=== PATIENT | female | born 1975 | race Caucasian/White ===

== ENCOUNTER 2019-01-28 06:16 | Observation (INO) ==
[2019-01-28] MEDS ORDERED: Albuterol 2.5 MG/3 ML NEBULIZER IH PRN (06:39)
[2019-01-28] MEDS ORDERED: CeFAZolin Syr 3,000MG/30 ML 3,000 MG/30 ML SYRINGE IVPB ONE (06:39)
[2019-01-28] MEDS ORDERED: Ringers Solution, Lactated 1,000 ML IVC SCH (06:45)
[2019-01-28] MEDS ORDERED: *HR* Propofol 200 MG/20 ML VIAL IVP ONE (07:05)
[2019-01-28] MEDS ORDERED: *HR* FentaNYL (PF) 100 MCG/2 ML VIAL ONE (07:05)
[2019-01-28] MEDS ORDERED: *HR* Midazolam HCl 2 MG/2 ML VIAL ONE (07:05)
[2019-01-28] MEDS ORDERED: *HR* Rocuronium Bromide 50 MG/5 ML VIAL ONE ×2 (07:08→08:20)
[2019-01-28] MEDS ORDERED: *HR* Succinylcholine 200 MG/10 ML VIAL IVP ONE (07:08)
[2019-01-28] MEDS ORDERED: Ondansetron 4 MG/2 ML VIAL ONE ×2 (07:08→10:40)
[2019-01-28] MEDS ORDERED: Lidocaine HCL 4 ML Topical Solution (Laryng-O-Jet Kit Sterile Pak) TP ONE (07:08)
[2019-01-28] MEDS ORDERED: Lidocaine -MPF 2% 2 ML VIAL ONE (07:08)
[2019-01-28] MEDS ORDERED: Pregabalin 75 MG CAPSULE PO ONE (07:11)
[2019-01-28] MEDS ORDERED: Celecoxib 200 MG CAPSULE PO ONE (07:11)
[2019-01-28] MEDS ORDERED: traMADol 50 MG TABLET PO ONE (07:11)
[2019-01-28] MEDS ORDERED: Famotidine 20 MG/2 ML VIAL IVP ONE (07:11)
[2019-01-28] MEDS ORDERED: cloNIDine HCl 0.1 MG TABLET PO ONE (07:11)
[2019-01-28] MEDS ORDERED: Acetaminophen IV 1,000 MG/100 ML INFUS..BTL IVPB ONE (07:12)
[2019-01-28] MEDS ORDERED: *HR* OxyCODONE/APAP 5/325 TABLET PO ONE (07:46)
[2019-01-28] MEDS ORDERED: *HR* Promethazine 25 MG/ML VIAL IVP PRN ×3 (08:23→16:50)
[2019-01-28] MEDS ORDERED: *HR* HYDROmorphone (PF) 1 MG/ML SYRINGE IVP PRN (08:23)
[2019-01-28] MEDS ORDERED: *HR* OxyCODONE Immed Rel 5 MG TABLET PO PRN (08:23)
[2019-01-28] MEDS ORDERED: *HR* Labetalol 20 MG/4 ML SYRINGE IVP PRN (08:23)
[2019-01-28] MEDS ORDERED: *HR* HYDROmorphone 2 MG TABLET PO PRN (08:23)
[2019-01-28] MEDS ORDERED: Neostigmine Methylsulfate 3 MG/3 ML SYRINGE ONE (10:24)
[2019-01-28] MEDS ORDERED: *HR* HYDROMORPHONE 2 MG/ML VIAL ONE ×2 (10:32→10:39)
[2019-01-28] MEDS ORDERED: *HR* OxyCODONE/APAP 5/325 TABLET PO PRN ×4 (15:20→16:50)
[2019-01-28] MEDS ORDERED: Ondansetron 4 MG/2 ML VIAL IVP PRN ×2 (15:20→16:50)
[2019-01-28] MEDS: Nicotine 14 MG PATCH.TD24 TD SCH (17:42)
[2019-01-28] MEDS: Ketorolac 15 MG/ML VIAL IVP SCH ×2 (17:42→23:31)
[2019-01-28] MEDS ORDERED: Ketorolac 15 MG/ML VIAL IVP SCH (18:00)
[2019-01-29] MEDS: Ketorolac 15 MG/ML VIAL IVP SCH (05:14)
[2019-01-29] MEDS: Nicotine 14 MG PATCH.TD24 TD SCH (07:46)
[2019-01-29] MEDS ORDERED: Ibuprofen 800 MG TABLET PO SCH (08:31)
[2019-01-29] MEDS ORDERED: *HR* Dextrose 50 % in Water (Syg) 50 ML SYRINGE IVP PRN (08:33)
[2019-01-29] MEDS ORDERED: Dextrose Gel 15 GM/37.5 ML TUBE PO PRN ×2 (08:33)
[2019-01-29] MEDS ORDERED: D5% in Water 1,000 ML IVC PRN (08:33)
[2019-01-29] MEDS ORDERED: *HR* Pioglitazone 45 MG TABLET PO SCH (09:00)
[2019-01-29] MEDS ORDERED: Pantoprazole 40 MG VIAL IVP SCH ×2 (09:00)
[2019-01-29] MEDS: Gabapentin 400 MG CAPSULE PO SCH ×2 (09:27→09:28)
[2019-01-29] MEDS ORDERED: Insulin LISPRO 300 UNITS/3 ML VIAL SQ SCH ×2 (11:30→21:00)
[2019-01-29 13:28] VITALS: BP 102/70
== END 2019-01-29 13:29 | disposition home or self-care (01) ==
LOC: SAMDAY 06:16 → 3ANU 06:16
PROVIDERS: ADMIT Surgery; ATTEND Surgery